=== PATIENT | female | born 1965 | race Caucasian/White ===

== ENCOUNTER 2022-01-11 20:59 | Emergency (ER) | payer BC, OTHER ==
[~2022-01-11] VITALS: Ht 160 cm; Wt 45.8 kg
[2022-01-11 21:20] VITALS: BP 137/78
--- NOTE | 2022-01-11 22:20 | NUR ---
Patient discharged to home in stable condition. Written and verbal after care instructions given. Patient verbalizes understanding of instruction.
== END 2022-01-11 22:21 | disposition home or self-care (01) ==
LOC: ER 21:10
DX: Z48.00 Encounter for change or removal of nonsurgical wound dressing (principal); Z60.2 Problems related to living alone